=== PATIENT | male | born 1995 | race Caucasian/White ===

== ENCOUNTER 2019-06-03 16:45 | Emergency (ER) | payer OTHER ==
[~2019-06-03] VITALS: Ht 172.7 cm; Wt 99.8 kg
[2019-06-03 17:14] VITALS: BP_SYST 129
--- NOTE | 2019-06-03 17:25 | NUR ---
Patient to ER bed 2 to gown for evaluation. Side rails up. Report given to HAI CHOW.
--- NOTE | 2019-06-03 18:02 | NUR ---
ER at bedside examining patient.
--- NOTE | 2019-06-03 18:02 | NUR ---
RN has assessed pt . 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 pt is otherwise young and healthy male. pt is bearing full weight.
[2019-06-03] MEDS ORDERED: IBUPROFEN 800 MG TABLET PO ONE (18:45)
--- NOTE | 2019-06-03 19:07 | NUR ---
Patient given written and verbal discharge instructions and verbalizes understanding. ER MD discussed with patient the results and treatment provided. Patient in stable condition. ID arm band removed. Rx of MOTRIN given. Patient educated on pain management and to follow up with PMD. Pain Scale . Opportunity for questions provided and answered. Medication side effect fact sheet provided.
[2019-06-03 19:08] VITALS: BP_SYST 125
== END 2019-06-03 19:08 | disposition home or self-care (01) ==
LOC: SED 16:45
DX: M54.5 Low back pain (principal)
CPT/HCPCS: 71045; 99283

== ENCOUNTER 2019-09-01 12:33 | Outpatient (CLI) | payer OTHER | END 2019-09-01 21:30 | disposition home or self-care (01) | LOC: SLB 12:33 | PROVIDERS: ATTEND Internal Medicine | DX: R50.9 Fever, unspecified (principal) | CPT/HCPCS: 87207 ==

== ENCOUNTER 2020-07-15 12:43 | Outpatient (CLI) | payer OTHER ==
[2020-07-15 13:27] LABS: BASOPHILS # (AUTO) 0.1 K/uL (0.0-0.2); BASOPHILS % (AUTO) 0.8 % (0.0-2.0); EOSINOPHILS # (AUTO) 0.1 K/uL (0.0-0.4); EOSINOPHILS % (AUTO) 1.4 % (0.0-4.0); HEMOGLOBIN 15.7 g/dL (14.0-18.0); LYMPHOCYTES # (AUTO) 1.6 K/uL (1.0-5.5); MEAN CORPUSCULAR HEMOGLOBIN 30 pg (27-31); MEAN CORPUSCULAR HGB CONC 34 % (32-36); MEAN CORPUSCULAR VOLUME 89 fL (79.0-98.0); MONOCYTES # (AUTO) 0.5 K/uL (0.0-1.0); MONOCYTES % (AUTO) 7.6 % (1.7-9.3); NEUTROPHILS # (AUTO) 4.3 K/uL (1.8-7.7); NEUTROPHILS % (AUTO) 65.2 % (40.0-70.0); PLATELET COUNT (AUTO) 275 K/uL (130-430); RED BLOOD CELL COUNT(AUTO) 5.15 MIL/uL (4.2-6.2); RED CELL DISTRIBUTION WIDTH 13.5 % (9.0-15.0); WHITE BLOOD COUNT (AUTO) 6.5 K/uL (4.8-10.8)
[2020-07-15 14:05] LABS: CALCIUM 8.3 mg/dL (8.4-11.0); CREATININE 0.82 mg/dL (0.55-1.30); POTASSIUM 3.8 mmol/L (3.5-5.1)
[2020-07-15 14:06] LABS: ALBUMIN 3.8 g/dL (3.4-4.8); THYROID STIMULATING HORMONE 0.92 uIu/mL (0.36-3.74); TOTAL BILIRUBIN 0.3 mg/dL (0.0-1.0)
[2020-07-15 14:18] LABS: ERYTHROCYTE SEDIMENTATION RATE 10 MM/HR (0-15)
== END 2020-07-15 20:18 | disposition home or self-care (01) ==
LOC: SLB 12:43
PROVIDERS: ATTEND Internal Medicine
DX: R04.0 Epistaxis (principal)
CPT/HCPCS: 36415; 70486-TC; 76376; 80053; 80061; 82306; 82607; 84443-TC; 85025; 85610-TC; 85651-TC; 85730-TC

== ENCOUNTER 2021-06-11 08:48 | Outpatient (CLI) | payer OTHER ==
[2021-06-11 10:16] LABS: BASOPHILS % (AUTO) 0.6 % (0.0-2.0); EOSINOPHILS % (AUTO) 0.5 % (0.0-4.0); HEMATOCRIT 44.9 % (36-54); LYMPHOCYTES # (AUTO) 0.9 K/uL (1.0-5.5); LYMPHOCYTES % (AUTO) 13.6 % (20.5-51.5); MEAN CORPUSCULAR HEMOGLOBIN 30 pg (27-31); MEAN CORPUSCULAR HGB CONC 33 % (32-36); MEAN CORPUSCULAR VOLUME 90 fL (79.0-98.0); MONOCYTES # (AUTO) 0.6 K/uL (0.0-1.0); MONOCYTES % (AUTO) 8.6 % (1.7-9.3); NEUTROPHILS # (AUTO) 5.1 K/uL (1.8-7.7); NEUTROPHILS % (AUTO) 76.7 % (40.0-70.0); PLATELET COUNT (AUTO) 229 K/uL (130-430); RED BLOOD CELL COUNT(AUTO) 4.98 MIL/uL (4.2-6.2); RED CELL DISTRIBUTION WIDTH 13.7 % (9.0-15.0); WHITE BLOOD COUNT (AUTO) 6.6 K/uL (4.8-10.8)
[2021-06-11 10:27] LABS: PROTHROMBIN TIME 10.4 SECS (9.5-12.5)
[2021-06-11 10:52] LABS: ALBUMIN 3.9 g/dL (3.4-4.8); CALCIUM 8.6 mg/dL (8.4-11.0); CREATININE 0.86 mg/dL (0.55-1.30); POTASSIUM 3.8 mmol/L (3.5-5.1); TOTAL BILIRUBIN 0.6 mg/dL (0.0-1.0); URIC ACID 4.5 mg/dL (2.4-7.0)
[2021-06-11 10:53] LABS: THYROID STIMULATING HORMONE 0.74 uIu/mL (0.36-3.74)
[2021-06-13 14:30] LABS: HEMOGLOBIN A1C 5.7 % (4.8-5.6)
== END 2021-06-11 14:52 | disposition home or self-care (01) ==
LOC: SUS 08:48
PROVIDERS: ATTEND Internal Medicine
DX: Z00.01 Encounter for general adult medical examination with abnormal findings (principal); R10.10 Upper abdominal pain, unspecified; E55.9 Vitamin D deficiency, unspecified; E66.9 Obesity, unspecified; R04.0 Epistaxis
CPT/HCPCS: 36415; 76700-TC; 80053; 80061; 82306; 82607; 83036; 83690; 84443; 84550; 85025; 85610-TC; 85730-TC; 86677

== ENCOUNTER 2021-06-25 08:21 | Outpatient (CLI) | payer OTHER ==
[2021-06-25] MEDS ORDERED: DIATR MEGLU/DIATRIZ SOD 30 ML SOLUTION PO ONE (08:42)
== END 2021-06-25 19:02 | disposition home or self-care (01) ==
LOC: SCT 08:21
PROVIDERS: ATTEND Internal Medicine
DX: R10.9 Unspecified abdominal pain (principal)
CPT/HCPCS: 74177; 76376; Q9964; Q9967